=== PATIENT | female | born 1950 | race Caucasian/White ===

== ENCOUNTER 2016-03-04 14:30 | Emergency (ER) | payer OTHER | END 2016-03-04 17:25 | disposition left against medical advice (07) | LOC: ER 14:30 | DX: Z53.21 Procedure and treatment not carried out due to patient leaving prior to being seen by health care provider (principal) | CPT/HCPCS: 71020 ==

== ENCOUNTER 2016-03-06 10:54 | Emergency (ER) | payer OTHER ==
[2016-03-06] MEDS ORDERED: OPTIRAY 350 100 ML VIAL HMH IV ONE (10:55)
[2016-03-06] MEDS ORDERED: SODIUM CHLORIDE 0.9% 1,000 ML ONE (12:45)
[2016-03-06] MEDS ORDERED: ONDANSETRON 4 MG VIAL ONE (12:45)
== END 2016-03-06 16:38 | disposition home or self-care (01) ==
LOC: ER 10:54
DX: R10.13 Epigastric pain (principal); R11.2 Nausea with vomiting, unspecified; R07.89 Other chest pain; K21.0 Gastro-esophageal reflux disease with esophagitis; F17.210 Nicotine dependence, cigarettes, uncomplicated; Z79.899 Other long term (current) drug therapy; J44.9 Chronic obstructive pulmonary disease, unspecified; F32.9 Major depressive disorder, single episode, unspecified; Z86.718 Personal history of other venous thrombosis and embolism; E07.9 Disorder of thyroid, unspecified
CPT/HCPCS: 36415; 71020; 71260; 74020; 74177; 80053; 83690; 84484; 84703; 85025; 93005; 96361; 96374; 99285; J2405; Q9967